=== PATIENT | male | born 1990 | race Caucasian/White ===

== ENCOUNTER 2016-06-14 18:42 | Emergency (ER) | payer OTHER ==
[~2016-06-14] VITALS: Ht 182.9 cm; Wt 89.6 kg
[~2016-06-14 18:42] MED LIST: ATARAX,VISTARIL50 MG PO; HYDROXYZINE PAM50 MG PO; LEVAQUIN500 MG PO; MOTRIN800 MG PO; NOHOMEMEDS; PROZAC20 MG PO; URIBEL CAPSULE1 EACH PO
[2016-06-14 20:08] VITALS: BP 109/96
== END 2016-06-14 20:11 | disposition home or self-care (01) ==
LOC: EME 18:42
PROC: 0HQFXZZ Repair Right Hand Skin, External Approach (ICD-10-PCS; principal; 2016-06-14)
PROC: 3E0234Z Introduction of Serum, Toxoid and Vaccine into Muscle, Percutaneous Approach (ICD-10-PCS; principal; 2016-06-14)
DX: S61.011A Laceration without foreign body of right thumb without damage to nail, initial encounter (principal); W27.4XXA Contact with kitchen utensil, initial encounter; Y92.511 Restaurant or cafe as the place of occurrence of the external cause
CPT/HCPCS: 99281; 99284; S0020

== ENCOUNTER → 2017-03-06 | Outpatient (CLI) | payer OTHER | END | disposition home or self-care (01) | LOC: CDC 08:40 | DX: Z79.891 Long term (current) use of opiate analgesic (principal) | CPT/HCPCS: 93000 ==

== ENCOUNTER 2017-08-13 16:56 | Inpatient (IN) | payer OTHER ==
[~2017-08-13] VITALS: Ht 182.9 cm; Wt 93.2 kg
[2017-08-13] MEDS ORDERED: METHADONE10 MG/1 M1 PO (18:31)
[2017-08-13] MEDS ORDERED: ADVIL,NUPRIN,M200 MG PO (18:33)
[2017-08-13 18:36] LABS: BASOPHIL (%) 0.3 % (0-1); EOSINOPHIL (%) 0.8 % (0-5); EOSINOPHIL COUNT 0.1 K/uL (0-0.3); HEMATOCRIT 42.6 % (38.0-50.0); HEMOGLOBIN 15.2 G/DL (12.5-16.6); IMMATURE GRANULOCYTE (%) 0.3 % (0.0-0.7); LYMPHOCYTE (%) 10.8 % (15-42); LYMPHOCYTE COUNT 1.2 K/uL (1.0-2.8); MCH 34.5 PG (29.0-34.0); MCHC 35.7 G/DL (30.0-36.0); MCV 96.6 FL (86-99); MONOCYTE (%) 3.9 % (3-12); MONOCYTE COUNT 0.4 K/uL (0-0.8); NEUTROPHIL (%) 83.9 % (45-76); NEUTROPHIL COUNT 9.2 K/uL (1.8-6.4); PLATELET COUNT 155 K/uL (156-360); RBC DIS.WIDTH-CV 11.8 % (11.8-14.6); RBC DIS.WIDTH-SD 42.3 % (39-53); RED BLOOD COUNT 4.41 M/uL (4.00-5.50)
[2017-08-13 18:44] LABS: INTER. NORMALIZED RATIO 1.2
[2017-08-13 18:46] LABS: ALBUMIN 4.1 g/dL (3.2-4.8); CHLORIDE 105 mEq/L (99-109); SODIUM 141 mEq/L (136-147)
[2017-08-13 18:47] LABS: PTT 34.5 SEC (25-37)
[2017-08-13 18:48] LABS: GLUCOSE 133 mg/dL (70-99); TOTAL PROTEIN 7.3 g/dL (6.4-8.3)
[2017-08-13 18:50] LABS: TOTAL BILIRUBIN 0.9 mg/dL (0.0-1.0)
[2017-08-13 18:52] LABS: ALKALINE PHOSPHATASE 64 IU/L (3-129); CREATININE 0.8 mg/dL (0.6-1.3); GFR ESTIMATE (CALCULATED) > 59 mL/min/ (58.99-99999)
[2017-08-13 18:53] LABS: UREA NITROGEN (BUN) 13 mg/dL (9-23)
[2017-08-13 18:54] LABS: AST (GOT) 22 IU/L (2-34)
[2017-08-13 18:55] LABS: ALT (GPT) 32 IU/L (3-49); LIPASE 18 U/L (1.0-51.0)
[2017-08-13 18:58] LABS: TROP-I INTERPRETATION NEGATIVE; TROPONIN-I < 0.01 ng/mL (0.0-0.30)
[2017-08-13 20:15] VITALS: BP 130/74
[2017-08-13 22:48] VITALS: BP 122/68
[2017-08-14 04:28] LABS: APPEARANCE CLEAR ((CLEAR)); BILIRUBIN NEGATIVE; BLOOD NEGATIVE; COLOR YELLOW ((YELLOW)); GLUCOSE (STRIP) NEGATIVE; KETONES NEGATIVE; LEUKOCYTES NEGATIVE; NITRITE NEGATIVE; PROTEIN (STRIP) NEGATIVE; UCUL ADDED? NO; UROBILINOGEN 0.2 MG/DL (0.2-1.0)
[2017-08-14 07:19] VITALS: BP 110/60
[2017-08-14 15:30] VITALS: BP 135/67
[2017-08-14 23:20] VITALS: BP 157/98
[2017-08-15 05:11] LABS: BASOPHIL (%) 0.6 % (0-1); EOSINOPHIL (%) 4.8 % (0-5); EOSINOPHIL COUNT 0.3 K/uL (0-0.3); HEMATOCRIT 37.1 % (38.0-50.0); IMMATURE GRANULOCYTE (%) 0.3 % (0.0-0.7); LYMPHOCYTE (%) 24.9 % (15-42); LYMPHOCYTE COUNT 1.6 K/uL (1.0-2.8); MCH 32.7 PG (29.0-34.0); MCHC 33.7 G/DL (30.0-36.0); MCV 97.1 FL (86-99); MONOCYTE (%) 7.7 % (3-12); MONOCYTE COUNT 0.5 K/uL (0-0.8); NEUTROPHIL (%) 61.7 % (45-76); PLATELET COUNT 142 K/uL (156-360); RBC DIS.WIDTH-CV 11.6 % (11.8-14.6); RBC DIS.WIDTH-SD 41.5 % (39-53); RED BLOOD COUNT 3.82 M/uL (4.00-5.50); WHITE BLOOD COUNT 6.5 K/uL (4.1-10.2)
[2017-08-15 05:12] LABS: HEMOGLOBIN 12.5 G/DL (12.5-16.6)
[2017-08-15 05:57] LABS: ALBUMIN 3.3 G/DL (3.2-4.8); ALKALINE PHOSPHATASE 42 IU/L (3-129); ALT (GPT) 28 IU/L (3-49); AST (GOT) 19 IU/L (2-34); CHLORIDE 106 MEQ/L (99-109); CREATININE 0.6 MG/DL (0.6-1.3); GFR ESTIMATE (CALCULATED) > 59 mL/min/ (58.99-99999); SODIUM 140 MEQ/L (136-147); TOTAL BILIRUBIN 0.4 MG/DL (0.0-1.0); TOTAL PROTEIN 5.8 G/DL (6.4-8.3); UREA NITROGEN (BUN) 9 mg/dL (9-23)
[2017-08-15 06:06] LABS: GLUCOSE 95 mg/dL (70-99)
[2017-08-15 06:55] VITALS: BP 118/85
[2017-08-15 15:08] VITALS: BP 137/90
[2017-08-15 22:36] VITALS: BP 142/88
[2017-08-16 03:17] LABS: HEMATOCRIT 36.5 % (38.0-50.0); HEMOGLOBIN 13.3 G/DL (12.5-16.6); MCH 34.5 PG (29.0-34.0); MCHC 36.4 G/DL (30.0-36.0); MCV 94.6 FL (86-99); RBC DIS.WIDTH-CV 11.5 % (11.8-14.6); RBC DIS.WIDTH-SD 39.3 % (39-53); RED BLOOD COUNT 3.86 M/uL (4.00-5.50); WHITE BLOOD COUNT 6.5 K/uL (4.1-10.2)
[2017-08-16 03:20] LABS: PLATELET COUNT 192 K/uL (156-360)
[2017-08-16 03:31] LABS: CHLORIDE 106 mEq/L (99-109); POTASSIUM 3.8 mEq/L (3.7-5.4); SODIUM 139 mEq/L (136-147)
[2017-08-16 03:32] LABS: GLUCOSE 105 mg/dL (70-99)
[2017-08-16 03:36] LABS: CREATININE 0.7 mg/dL (0.6-1.3); GFR ESTIMATE (CALCULATED) > 59 mL/min/ (58.99-99999)
[2017-08-16 03:37] LABS: UREA NITROGEN (BUN) 8 mg/dL (9-23)
[2017-08-16 06:59] VITALS: BP 133/81
[2017-08-16] MEDS ORDERED: BACTRIM,SEPT1 TABLET PO (08:57)
[2017-08-16] MEDS ORDERED: IBU600 MG PO (08:57)
== END 2017-08-16 10:35 | disposition home or self-care (01) | DRG 603 ==
LOC: EME 16:56 → EDOF 18:40 → 5EAST 18:40 → ENRESERV 18:42 → 5EAST 20:08
PROVIDERS: Emergency Medicine; Physician Assistant Medical; Physician Assistant Surgical
PROC: 0H9EXZZ Drainage of Left Lower Arm Skin, External Approach (ICD-10-PCS; principal; 2017-08-13)
DX: L02.414 Cutaneous abscess of left upper limb (principal); L03.114 Cellulitis of left upper limb; I10 Essential (primary) hypertension; F17.210 Nicotine dependence, cigarettes, uncomplicated; F11.20 Opioid dependence, uncomplicated; Z86.19 Personal history of other infectious and parasitic diseases
CPT/HCPCS: 71045; 80048; 80053; 80202; 81003; 83605; 83690; 84484; 85025; 85027; 85610; 85730; 87040; 87070; 87075; 87076; 87077; 87147; 87186; 87205; 99281; 99284; J1885; J2543; J3370; J7050